=== PATIENT | female | born 1990 | race Caucasian/White ===

== ENCOUNTER 2019-02-06 12:13 | Inpatient (IN) | payer OTHER ==
[~2019-02-06] VITALS: Ht 154.9 cm; Wt 78.9 kg
[~2019-02-06 12:13] MED LIST: PNV11TAB PO
[2019-02-06 12:27] VITALS: BP 121/80; PULSE 98; Ht 154.9 cm; Wt 78.9 kg
[2019-02-06] MEDS ORDERED: LACTATED RINGER'S 1,000 ML IV ONE (12:30)
--- NOTE | 2019-02-06 12:48 | TRIAGE ---
OB Triage Datetime Report Generated by CPN: 02/06/2019 12:48 Datetime: 02/06/2019 12:34 Assessment Type: Triage Maternal Assessment Level of Consciousness: Keenly Alert, Responsive DTR's/Clonus: DTRs 2+; No Clonus Headache: Denies Blurred Vision: No Respiratory Effort: Unlabored; Regular Rhythm; Equal Expansion Breath Sounds, Left: Clear and Equal Breath Sounds, Right: Clear and Equal Nausea/Vomiting: Denies RUQ Epigastric Pain: Denies Lower Extremities Edema: None Degree: None Upper Extremities Edema: None Degree: None Facial Edema: None Fall Risk Assessment History of Falling: (0) No Secondary Diagnosis: (0) No Ambulatory Aid: (0) Bedrest/Nurse Assist IV Therapy: (0) No Gait: (0) Normal/Bedrest/Immobile Mental Status: (0) Oriented to Own Ability Fall Score: 0 Fall Risk Score Definition: No Risk: No action required Datetime: 02/06/2019 12:30 Time of Arrival: 02/06/2019 12:05 EGA: 37.0 Arrived By: Ambulatory Arrived From: Other Unit in Hospital Chief Complaint: LOW WEST Movement: Present Contractions: Denies/Absent Rupture of Membranes: Denies Vaginal Bleeding: None Vaginal Discharge: Denies Recent Sexual Intercouse: Denies Abdominal Trauma: Not Applicable Patient Complaints: Other Time Provider Notified: 02/06/2019 12:40 Provider Notified: DR MORENO Initial Plan: NST AND IV HYDRATION
[2019-02-06] MEDS: LACTATED RINGER'S 1,000 ML IV SCH ×2 (15:43→23:58)
[2019-02-07] MEDS: LACTATED RINGER'S 1,000 ML IV SCH ×5 (05:56→16:17)
--- NOTE | 2019-02-07 17:26 | HP ---
Date/Time of Note Date/Time of Note DATE: 02/07/19 TIME: 17:23 OB - History Hx of Present Free Text/Dictation 28-year-old 1 at 37 weeks and 1 day with due date February 27, 2019. She has gestational diabetes controlled on diet. Early in the insulin was prescribed but patient declined to use insulin and she only controls her gestational diabetes with diet and exercise. She reports good movement movements. She denies vaginal bleeding loss of fluid per vagina or contractions. Yesterday fluid was WEST 5.7. Dr. Bermudez recommended observation and repeat WEST. WEST today is 7.8. Dr. Bermudez told me she may be discharged home if WEST more than 7. I advised patient that she needs to follow-up on Sunday for another WEST check. Care: Good Care Ultrasounds: Normal mid trimester US Obstetrical Complications: Gestational Diabetes Medical Complications: None Past Family/Social History * Past Medical, Surgical, Family and Obstetric Histories reviewed from chart. OB Admission Exam Vital Signs Vital Signs Vital Signs Date Temp Pulse Resp B/P (MAP) Pulse Ox O2 O2 Flow FiO2 Time Delivery Rate 02/06/19 98.6 98 121/80 Room Air 12:27 (94) Physical Exam HEENT: WNL Heart: Rhythm Normal Lungs: Clear, Equal Abdomen: WNL Extremities: Normal Reflexes: Normal Last 72 hourBlood Glucose Bedside Glucose - 72 Hours Test 02/06/19 17:00 02/06/19 19:40 02/07/19 08:45 02/07/19 10:48 Bedside 91 89 62 81 Glucose mg/dL (70-220) mg/dL (70-220) mg/dL (70-220) mg/dL (70-220) L Test 02/07/19 15:23 Bedside 107 Glucose mg/dL (70-220) Last 72 hours Lab Results CBC & BMP 02/06/19 13:30 OB Assessment/Plan Other Assessment: IUP 37 weeks and 1 day. Gestational diabetes diet-controlled. Oligohydramnios improved Other plan: She may be discharged home at this time and follow-up at [facility] ELSIE MORENO MD Feb 07, 2019 17:26
--- NOTE | 2019-02-07 17:27 | DS ---
Date/Time of Note Date/Time of Note DATE: 02/07/19 TIME: 17:27 Obstetrical Discharge Record Final Diagnosis Final Diagnosis: not delivered Other Final Diagnosis 28-year-old 1 at 37 weeks and 1 day with due date February 27, 2019. She has gestational diabetes controlled on diet. Early in the insulin was prescribed but patient declined to use insulin and she only controls her gestational diabetes with diet and exercise. She reports good movement movements. She denies vaginal bleeding loss of fluid per vagina or contractions. Yesterday fluid was WEST 5.7. Dr. Bermudez recommended observation and repeat WEST. WEST today is 7.8. Dr. Bermudez told me she may be discharged home if WEST more than 7. I advised patient that she needs to follow-up on Sunday for another WEST check. Condition on Discharge Physical Assessment Voiding: Yes Bowel Movement: Yes Breast: Soft, non-tender, Filling Fundus: Firm Abdomen and Incision: Soft gravid nontender Calf Tenderness: No Patient Condition: Good ELSIE MORENO MD Feb 07, 2019 17:27
--- NOTE | 2019-02-11 13:37 | NSTRPT ---
NST Information Datetime Report Generated by CPN: 02/11/2019 13:37 Datetime: 02/05/2019 08:35 NST Information EGA: 36.6 Test Number: 5 Time on Monitor: 02/05/2019 09:11 Time off Monitor: 02/05/2019 09:42 NST Duration (Min): 31 Reason for NST: Diabetes Mellitus; Other Reason for NST Other: A2DM Test and Monitor Explained: Monitor Explained; Test Explained; Verbalized Understanding Pulse: 86 Resp: 18 SBP: 126 DBP: 78 Test Evaluation NST Interventions: None Patient States Movement: Present Contraction Frequency: NONE FHR Baseline : 140 Variability: Moderate 6-25bpm Accelerations: 15X15 FHR Category: Category I NST Results: Reactive Comments: pt to u/s. WEST 7.2cm. CEPHALIC. Electronically Signed By E-Signature: with User ID: [id number] Datetime: 02/03/2019 09:29 NST Information EGA: 36.4 NST Duration (Min): 20 Datetime: 01/30/2019 09:05 NST Information EGA: 36.0 NST Duration (Min): 44 Datetime: 01/27/2019 09:58 NST Information EGA: 35.4 NST Duration (Min): 29 Datetime: 01/23/2019 10:33 NST Information EGA: 35.0 Datetime: 01/23/2019 10:26 NST Duration (Min): 27
== END 2019-02-07 18:00 | disposition home or self-care (01) | DRG 832 ==
LOC: OBT 12:13 → L-D 12:13 → OBT 13:00
PROVIDERS: ADMIT Specialist; ATTEND Specialist
DX: O24.410 Gestational diabetes mellitus in pregnancy, diet controlled (principal); O41.03X0 Oligohydramnios, third trimester, not applicable or unspecified; Z3A.37 37 weeks gestation of pregnancy
CPT/HCPCS: 76815; 82962; 85025; 85610; 85730; 86592; 86900; 86901; G0463; J7120

== ENCOUNTER 2019-02-18 20:02 | Inpatient (IN) | payer OTHER ==
[~2019-02-18] VITALS: Ht 154.9 cm; Wt 78.0 kg
[2019-02-18 20:44] VITALS: Ht 154.9 cm; Wt 78.0 kg
[2019-02-18] MEDS ORDERED: OXYTOCIN 30 UNITS/LR 500 ML IV PRN (21:00)
[2019-02-18] MEDS ORDERED: LIDOCAINE 1% (MPF) 30 ML INJ INJ PRN (21:00)
[2019-02-18] MEDS ORDERED: OXYTOCIN 30 UNITS/LR 500 ML IV SCH ×2 (21:00)
[2019-02-18] MEDS ORDERED: BUTORPHANOL 2 MG INJ IV PRN (21:00)
[2019-02-18] MEDS ORDERED: MINERAL OIL LIGHT 10 ML VIAL TOP PRN (21:00)
[2019-02-18] MEDS ORDERED: CARBOPROST 250 MCG INJ IM PRN (21:00)
[2019-02-18] MEDS ORDERED: MISOPROSTOL 200 MCG TAB PR PRN (21:00)
[2019-02-18] MEDS ORDERED: AMPICILLIN 2 GM/NS (PMX) 100 ML IV ONE (21:00)
[2019-02-18] MEDS ORDERED: METHYLERGONOVINE 0.2 MG INJ IM PRN (21:00)
[2019-02-18] MEDS: LACTATED RINGER'S 1,000 ML IV SCH (21:29)
[2019-02-18] MEDS ORDERED: FENTAnyl 2MCG/ML-ROPIV 0.2% 100 ML ONE (22:07)
[2019-02-18] MEDS: MISOPROSTOL 50 MCG CAPSULE PO PRN (22:08)
[2019-02-19] MEDS ORDERED: AMPICILLIN 1 GM/NS (PMX) 50 ML IV SCH (01:00)
[2019-02-19] MEDS: AMPICILLIN 1 GM/NS (PMX) 50 ML IVPB SCH ×6 (01:54→21:56)
[2019-02-19] MEDS: MISOPROSTOL 50 MCG CAPSULE PO PRN (04:57)
[2019-02-19] MEDS: LACTATED RINGER'S 1,000 ML IV SCH ×2 (04:59→08:55)
[2019-02-19] MEDS ORDERED: LACTATED RINGER'S 1,000 ML IV PRN (09:08)
[2019-02-19] MEDS ORDERED: FENTAnyl 2MCG/ML-ROPIV 0.2% 100 ML ONE (09:30)
[2019-02-19] MEDS ORDERED: DIPHENHYDRAMINE 50 MG INJ IV PRN (09:30)
[2019-02-19] MEDS ORDERED: NALOXONE (0.4 MG/ML) INJ IV PRN (09:30)
[2019-02-19] MEDS ORDERED: OXYTOCIN 30 UNITS/LR 500 ML IV SCH ×2 (09:30→15:00)
[2019-02-19] MEDS ORDERED: ONDANSETRON 4 MG INJ IV PRN (09:30)
[2019-02-19] MEDS: FENTAnyl 2MCG/ML-ROPIV 0.2% 100 ML BAG EPI SCH ×3 (10:49→21:57)
[2019-02-19 11:08] VITALS: BP 123/63; PULSE 63; RESP 18
[2019-02-19] MEDS: DEXTROSE 5%-LR 1,000 ML IV SCH ×2 (14:39→21:33)
[2019-02-20] MEDS: AMPICILLIN 1 GM/NS (PMX) 50 ML IVPB SCH (02:22)
[2019-02-20] MEDS: FENTAnyl 2MCG/ML-ROPIV 0.2% 100 ML BAG EPI SCH (04:26)
[2019-02-20 07:45] VITALS: BP 134/80; PULSE 84; RESP 20
[2019-02-20] MEDS ORDERED: OXYTOCIN 30 UNITS/LR 500 ML IV SCH (10:01)
[2019-02-20] MEDS ORDERED: BENZOCAINE 20% 56 ML SPRAY TOP PRN (10:30)
[2019-02-20] MEDS ORDERED: METHYLERGONOVINE 0.2 MG INJ IM PRN (10:30)
[2019-02-20] MEDS ORDERED: WITCH HAZEL/GLYCERIN PAD PR PRN (10:30)
[2019-02-20] MEDS ORDERED: LANOLIN HPA 1 PKT TOP PRN (10:30)
[2019-02-20] MEDS ORDERED: DIBUCAINE 1% 30 GM OINT TOP PRN (10:30)
[2019-02-20] MEDS ORDERED: CARBOPROST 250 MCG INJ IM PRN (10:30)
[2019-02-20] MEDS ORDERED: OXYTOCIN 30 UNITS/LR 500 ML IV PRN (10:30)
[2019-02-20] MEDS ORDERED: MISOPROSTOL 200 MCG TAB PR PRN (10:30)
[2019-02-20] MEDS ORDERED: NACL 0.9% 3 ML SYG IV SCH (10:30)
[2019-02-20] MEDS ORDERED: OXYTOCIN 30 UNITS/LR 500 ML IV ONE (10:32)
[2019-02-20] MEDS: IBUPROFEN 800 MG TAB PO SCH ×3 (11:03→23:47)
[2019-02-20 12:10] VITALS: BP 120/60; PULSE 81; RESP 20
[2019-02-20 16:15] VITALS: BP 125/77; PULSE 91; RESP 20
[2019-02-20 20:00] VITALS: BP 127/81; PULSE 91; RESP 18
[2019-02-20] MEDS: SENNA/DOCUSATE NA (8.6MG/50MG) TAB PO PRN (23:47)
[2019-02-21 00:39] VITALS: BP 102/62; PULSE 78; RESP 18
[2019-02-21] MEDS: IBUPROFEN 800 MG TAB PO SCH ×3 (05:34→17:14)
[2019-02-21 06:08] VITALS: BP 113/62; PULSE 71; RESP 18
[2019-02-21 08:30] VITALS: BP 105/61; PULSE 84; RESP 16
[2019-02-21 16:20] VITALS: BP 119/69; PULSE 78; RESP 16
[2019-02-21 21:05] VITALS: BP 119/74; PULSE 73; RESP 18
[2019-02-22] MEDS: IBUPROFEN 800 MG TAB PO SCH ×2 (00:25→06:30)
[2019-02-22 04:35] VITALS: BP 127/68; PULSE 80; RESP 19
[2019-02-22 08:00] VITALS: BP 116/68; PULSE 69; RESP 17
[2019-02-22] MEDS: SENNA/DOCUSATE NA (8.6MG/50MG) TAB PO PRN (09:09)
== END 2019-02-22 12:35 | disposition home or self-care (01) | DRG 807 ==
LOC: L-D 20:02 → MS1 02-20 07:39 → PP1 02-21 18:04 → EDSTATUS 02-27 19:58
PROVIDERS: ADMIT Specialist; ATTEND Specialist
PROC: 4A1HXCZ Monitoring of Products of Conception, Cardiac Rate, External Approach (ICD-10-PCS; 2019-02-18)
PROC: 3E0P7GC Introduction of Other Therapeutic Substance into Female Reproductive, Via Natural or Artificial Opening (ICD-10-PCS; 2019-02-18)
PROC: 10E0XZZ Delivery of Products of Conception, External Approach (ICD-10-PCS; principal; 2019-02-20)
PROC: 0HQ9XZZ Repair Perineum Skin, External Approach (ICD-10-PCS; 2019-02-20)
DX: O24.420 Gestational diabetes mellitus in childbirth, diet controlled (principal); Z37.0 Single live birth; O70.0 First degree perineal laceration during delivery; O69.81X0 Labor and delivery complicated by cord around neck, without compression, not applicable or unspecified; O99.214 Obesity complicating childbirth; E66.01 Morbid (severe) obesity due to excess calories; Z3A.38 38 weeks gestation of pregnancy
CPT/HCPCS: 62322; 76815; 82947; 82962; 85025; 85610; 85730; 86592; 86850; 86900; 86901; 87340; 99464; J0290; J2590; J3010; J7120; J7121